=== PATIENT | male | born 1955 | race Caucasian/White ===

== ENCOUNTER → 2021-02-21 01:55 | Outpatient (CLI) | payer MEDICARE, SELFPAY ==
[2021-02-21 23:32] LABS: SARS-CoV-2 RNA PCR Negative
== END ==
PROVIDERS: PCP Internal Medicine; Visit Provider Internal Medicine Gastroenterology
DX: Z01.812 Encounter for preprocedural laboratory examination (principal); Z20.822 Contact with and (suspected) exposure to COVID-19
CPT/HCPCS: C9803; U0003; U0005

== ENCOUNTER 2021-02-24 02:14 | Day surgery (SDC) | payer MEDICARE, SELFPAY ==
[2021-02-11 09:34] VITALS: BMI 31.4
[2021-02-24 06:25] VITALS: BP 177/108; PULSE 62; RESP 18; TEMP 36.4; O2SAT 98; BMI 31.4
[2021-02-24] MEDS: LACTATED RINGERS 1,000 ML 150 ML IV CONT (06:42)
[2021-02-24 06:44] LABS: Glucose Point of Care 127 (65-105)
--- NOTE | 2021-02-24 07:00 | WPDANESEPPF ---
Anes - Initial Pre Proc Eval Procedure: Operation Date: 02/24/21 07:30 Proposed Procedures p Screening Colonoscopy - Porfirio Davila MD Date/Time: 02/24/21 07:00 Surgeon: Porfirio Davila MD Pre Op Diagnosis: hx of colon polyps Patient Data Age: 65 Gender: M Height: 1.83 m Weight: 105.2 kg Last Vital Signs Temp 36.4 C L 02/24/21 06:25 Pulse 62 02/24/21 06:25 Resp 18 02/24/21 06:25 BP 177/108 H 02/24/21 06:25 Pulse Ox 98 02/24/21 06:25 Allergies Allergy/AdvReac Type Severity Reaction Status Date / Time fluticasone Allergy Unknown Hives Verified 02/24/21 06:22 Home Medications Medication Instructions Recorded Confirmed Type aspirin 81 mg tablet,delayed 81 mg PO DAILY 08/24/19 02/11/21 History release blood sugar diagnostic #10 each 08/24/19 12/03/20 History lancets 30 gauge #25 each 08/24/19 12/03/20 History triamcinolone acetonide 55 mcg 1 spray NASAL HS 08/24/19 02/11/21 History nasal spray aerosol ezetimibe 10 mg tablet 10 mg PO DAILY #90 tablet 12/03/20 02/11/21 Rx metformin 1,000 mg tablet 1,000 mg PO BID #180 tablet 12/03/20 02/11/21 Rx valsartan 320 1 tablet PO DAILY #90 tablet 12/03/20 02/11/21 Rx mg-hydrochlorothiazide 12.5 mg tablet verapamil 240 mg tablet,extended 240 mg PO Q12H #180 tablet 12/03/20 02/11/21 Rx release sodium,potassium,mag sulfates 17.5 See Rx Instructions PO .COMPLEX 01/27/21 02/24/21 Rx gram-3.13 gram-1.6 gram oral soln #354 ml Zinc-15 15 mg PO DAILY 02/11/21 02/11/21 History ascorbic acid (vitamin C) 1,000 mg PO DAILY 02/11/21 02/11/21 History cholecalciferol (vitamin D3) 5,000 unit PO DAILY 02/11/21 02/11/21 History [Vitamin D3] coenzyme Q10 [Co Q-10] 100 mg PO DAILY 02/11/21 02/11/21 History [id number]-iya-[id number] acid-lutein [Adult 1 tablet PO DAILY 02/11/21 02/11/21 History Multivitamin (w-lutein)] omega-3 fatty acids [Fish Oil 2,000 mg PO DAILY 02/11/21 02/11/21 History Concentrate] vitamin K2 100 mcg PO DAILY 02/11/21 02/11/21 History Laboratory Tests 02/24/21 06:40 POC Capillary Glucose 127 mg/dl H mg/dl (65-105) Patient hx anesthesia problems: none Family hx anesthesia problems: none [facility] Past Medical History Medical History (Updated 02/23/21 @ 08:26 by Ronald Yoo DO) Benign essential hypertension Elevated liver function tests History of colon polyps [place] (obstructive sleep apnea) CPAP Other hyperlipidemia Type 2 diabetes mellitus without complication, without long-term current use of insulin Family History Family History Father Family history of kidney disease Patient's father is Grandparent Cerebrovascular accident Mother Family history of kidney disease Social History Social History Smoking status: Former smoker Tobacco type: cigars Alcohol intake: current Substance use: never Substance use type: does not use Living arrangements: with family Spiritual care concerns: No Anes - Eval Final PreProcedure Day of Procedure 02/24/21 07:00 Patient weight: obese Heart: regular rate and rhythm Lungs: clear to auscultation and normal air movement Airway: Mallampati scale class III Neurological: alert and oriented Last oral intake: >/= 8 hours ASA classification: III Emergent: no Anesthetic plan: proceed Anesthesia type and monitoring: general GIVS and standard monitoring Informed Consent: The patient's anesthetic plan and its attendant risks and benefits were discussed with the patient/family/POA. Questions were solicited and answers provided to the satisfaction of the patient/family/POA.
--- NOTE | 2021-02-24 07:26 | WPDGICN ---
Assessment and Plan Assessment and plan (1) History of colon polyps: Code(s): Z86.010 - Personal history of colonic polyps Status: Acute Assessment and Plan: Patient has a history of colon polyps for this reason neoplasia screening advised at this time. Colonoscopy will be performed this report follow separately. GI Consult Note Consult date/time: 02/24/21 07:26 HPI: Trino Peguero is a 65 year old male Presents for screening colonoscopy. Patient's current weight appetite bowel movements are normal. He denies abdominal pain. He has had no bleeding. His family history is noncontributory. Patient's last colonoscopy was 7 years ago. At that time he had a colon polyp. Patient presents today for screening colonoscopy. Review of Systems Review of Systems: All systems reviewed & are unremarkable except as noted in HPI and below [facility] Past Medical History Medical History (Updated 02/23/21 @ 08:26 by Ronald Yoo, ) Benign essential hypertension Elevated liver function tests History of colon polyps [place] (obstructive sleep apnea) CPAP Other hyperlipidemia Type 2 diabetes mellitus without complication, without long-term current use of insulin Family History Family History Father Family history of kidney disease Patient's father is Grandparent Cerebrovascular accident Mother Family history of kidney disease Social History Social History Smoking status: Former smoker Tobacco type: cigars Alcohol intake: current Substance use: never Substance use type: does not use Living arrangements: with family Spiritual care concerns: No Meds Home Medications and Allergies Home Medications Medication Instructions Recorded Confirmed Type aspirin 81 mg tablet,delayed 81 mg PO DAILY 08/24/19 02/11/21 History release blood sugar diagnostic #10 each 08/24/19 12/03/20 History lancets 30 gauge #25 each 08/24/19 12/03/20 History triamcinolone acetonide 55 mcg 1 spray NASAL HS 08/24/19 02/11/21 History nasal spray aerosol ezetimibe 10 mg tablet 10 mg PO DAILY #90 tablet 12/03/20 02/11/21 Rx metformin 1,000 mg tablet 1,000 mg PO BID #180 tablet 12/03/20 02/11/21 Rx valsartan 320 1 tablet PO DAILY #90 tablet 12/03/20 02/11/21 Rx mg-hydrochlorothiazide 12.5 mg tablet verapamil 240 mg tablet,extended 240 mg PO Q12H #180 tablet 12/03/20 02/11/21 Rx release sodium,potassium,mag sulfates 17.5 See Rx Instructions PO .COMPLEX 01/27/21 02/24/21 Rx gram-3.13 gram-1.6 gram oral soln #354 ml Zinc-15 15 mg PO DAILY 02/11/21 02/11/21 History ascorbic acid (vitamin C) 1,000 mg PO DAILY 02/11/21 02/11/21 History cholecalciferol (vitamin D3) 5,000 unit PO DAILY 02/11/21 02/11/21 History [Vitamin D3] coenzyme Q10 [Co Q-10] 100 mg PO DAILY 02/11/21 02/11/21 History re-adr-jjrai acid-lutein [Adult 1 tablet PO DAILY 02/11/21 02/11/21 History Multivitamin (w-lutein)] omega-3 fatty acids [Fish Oil 2,000 mg PO DAILY 02/11/21 02/11/21 History Concentrate] vitamin K2 100 mcg PO DAILY 02/11/21 02/11/21 History Allergies Allergy/AdvReac Type Severity Reaction Status Date / Time fluticasone Allergy Unknown Hives Verified 02/24/21 06:22 Vital Signs Vital Signs - 24 hr 02/24/21 06:25 Temperature 97.5 F L Pulse Rate 62 Respiratory Rate 18 Blood Pressure 177/108 H Pulse Oximetry 98 Exam Narrative: Exam Narrative: Physical exam reveals patient be alert. Vital signs stable. HEENT exam is unremarkable. Patient is anicteric. Lungs are clear to auscultation and percussion. Heart is without murmur or extra sounds. Abdominal exam bowel sounds are present soft nontender with no organomegaly. Digital external rectal exam is normal.
[2021-02-24 07:48] VITALS: BP 139/95; PULSE 66; RESP 19; O2SAT 95
--- NOTE | 2021-02-24 07:49 | WPDGICN ---
GI Consult Note Consult date/time: 02/24/21 07:49 HPI: Trino Peguero is a 65 year old male Presents for screening colonoscopy. Last exam 11 years ago was unremarkable. Patient reports his current weight appetite bowel movements normal. He denies abdominal pain. He has had no bleeding. Family history is noncontributory. Recent stool for Hemoccult was negative. His hemoglobin has remained essentially stable. Family history noncontributory. Review of Systems Review of Systems: All systems reviewed & are unremarkable except as noted in HPI and below [facility] Past Medical History Medical History (Updated 02/23/21 @ 08:26 by Ronald Yoo, ) Benign essential hypertension Elevated liver function tests History of colon polyps [place] (obstructive sleep apnea) CPAP Other hyperlipidemia Type 2 diabetes mellitus without complication, without long-term current use of insulin Family History Family History Father Family history of kidney disease Patient's father is Grandparent Cerebrovascular accident Mother Family history of kidney disease Social History Social History Smoking status: Former smoker Tobacco type: cigars Alcohol intake: current Substance use: never Substance use type: does not use Living arrangements: with family Spiritual care concerns: No Meds Home Medications and Allergies Home Medications Medication Instructions Recorded Confirmed Type aspirin 81 mg tablet,delayed 81 mg PO DAILY 08/24/19 02/11/21 History release blood sugar diagnostic #10 each 08/24/19 12/03/20 History lancets 30 gauge #25 each 08/24/19 12/03/20 History triamcinolone acetonide 55 mcg 1 spray NASAL HS 08/24/19 02/11/21 History nasal spray aerosol ezetimibe 10 mg tablet 10 mg PO DAILY #90 tablet 12/03/20 02/11/21 Rx metformin 1,000 mg tablet 1,000 mg PO BID #180 tablet 12/03/20 02/11/21 Rx valsartan 320 1 tablet PO DAILY #90 tablet 12/03/20 02/11/21 Rx mg-hydrochlorothiazide 12.5 mg tablet verapamil 240 mg tablet,extended 240 mg PO Q12H #180 tablet 12/03/20 02/11/21 Rx release sodium,potassium,mag sulfates 17.5 See Rx Instructions PO .COMPLEX 01/27/21 02/24/21 Rx gram-3.13 gram-1.6 gram oral soln #354 ml Zinc-15 15 mg PO DAILY 02/11/21 02/11/21 History ascorbic acid (vitamin C) 1,000 mg PO DAILY 02/11/21 02/11/21 History cholecalciferol (vitamin D3) 5,000 unit PO DAILY 02/11/21 02/11/21 History [Vitamin D3] coenzyme Q10 [Co Q-10] 100 mg PO DAILY 02/11/21 02/11/21 History [id number] acid-lutein [Adult 1 tablet PO DAILY 02/11/21 02/11/21 History Multivitamin (w-lutein)] omega-3 fatty acids [Fish Oil 2,000 mg PO DAILY 02/11/21 02/11/21 History Concentrate] vitamin K2 100 mcg PO DAILY 02/11/21 02/11/21 History Allergies Allergy/AdvReac Type Severity Reaction Status Date / Time fluticasone Allergy Unknown Hives Verified 02/24/21 06:22 Vital Signs Vital Signs - 24 hr 02/24/21 06:25 02/24/21 07:48 Temperature 97.5 F L Pulse Rate 62 66 Respiratory Rate 18 19 Blood Pressure 177/108 H 139/95 H Pulse Oximetry 98 95 Exam Narrative: Exam Narrative: Physical exam reveals patient to be alert. Vital signs stable. HEENT exam is unremarkable. Patient is anicteric
[2021-02-24 07:58] VITALS: BP 157/103; PULSE 50; RESP 19; O2SAT 97
[2021-02-24 08:08] VITALS: BP 171/100; PULSE 48; RESP 19; O2SAT 96
== END 2021-02-24 08:12 | disposition home or self-care (01) ==
PROVIDERS: PCP Internal Medicine; Visit Provider Internal Medicine Gastroenterology
PROC: 0DJD8ZZ Inspection of Lower Intestinal Tract, Via Natural or Artificial Opening Endoscopic (ICD-10-PCS; CPT 45378; principal; 2021-02-24 07:30)
DX: Z12.11 Encounter for screening for malignant neoplasm of colon (principal); K57.30 Diverticulosis of large intestine without perforation or abscess without bleeding; Z86.010 Personal history of colon polyps; I10 Essential (primary) hypertension; G47.33 Obstructive sleep apnea (adult) (pediatric); E78.5 Hyperlipidemia, unspecified; E11.9 Type 2 diabetes mellitus without complications; Z87.891 Personal history of nicotine dependence; Z79.82 Long term (current) use of aspirin; Z79.84 Long term (current) use of oral hypoglycemic drugs; E66.9 Obesity, unspecified; Z68.31 Body mass index [BMI] 31.0-31.9, adult
CPT/HCPCS: G0105; 82948; J2704; J7120

== ENCOUNTER → 2023-03-28 11:48 | Outpatient (CLI) | payer MEDICARE, SELFPAY ==
--- NOTE | ~2023-03-28 | XR_ITS ---
Left wrist Technique: PA, oblique, lateral, and ulnar deviation views were obtained. Clinical History: Pain Findings: No acute fracture or dislocation is seen. Osseous alignment is anatomic. There is moderate degenerative change at the first CMC joint. Soft tissues are unremarkable. 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 Reviewed, dictated and finalized at [facility]. 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
--- NOTE | ~2023-03-28 | XR_ITS ---
Right wrist Technique: PA, oblique, lateral, and ulnar deviation views were obtained. Clinical History: Pain Findings: No acute fracture or dislocation is seen. Osseous alignment is anatomic. There is minimal d egenerative change at the first CMC joint. Soft tissues are unremarkable. Impression: Minimal degenerative change of the first CMC joint. Reviewed, dictated and finalized at [facility]. Impression: Minimal degenerative change of the first CMC joint.
== END ==
PROVIDERS: PCP Plastic Surgery; Visit Provider Plastic Surgery
DX: M19.031 Primary osteoarthritis, right wrist (principal); M19.032 Primary osteoarthritis, left wrist
CPT/HCPCS: 73110

== ENCOUNTER 2023-12-08 00:16 | Day surgery (SDC) | payer MEDICARE, SELFPAY ==
[2023-11-18 09:00] VITALS: BMI 31.6
--- NOTE | 2023-12-06 08:28 | SUR.PREOP ---
Patient called regarding upcoming procedure. Voicemail regarding left appointment times.
--- NOTE | 2023-12-07 14:35 | PM.HPGS ---
History of Present Illness History of Present Illness Consent: Risks, benefits, and alternatives have been discussed and questions answered. Patient agrees to proceed with procedure. Chief complaint: melena,hx of colon polyps Narrative: Trino Peguero is a 68 year old male Who noted blood in his stool which was somewhat maroon the 1st several few days of this year. Also he has history of polyps. His last colonoscopy was about 4 years ago. Review of Systems Review of Systems: All systems reviewed & are unremarkable except as noted in HPI and below PMFSH Past Medical History Medical History Benign essential hypertension COVID-19 Elevated liver function tests History of colon polyps [place] (obstructive sleep apnea) CPAP Other hyperlipidemia Type 2 diabetes mellitus without complication, without long-term current use of insulin Family History Family History Father Family history of kidney disease Patient's father is Grandparent Cerebrovascular accident Mother Family history of kidney disease Social History Social History Smoking status: Former smoker Tobacco type: cigars Second hand tobacco smoke exposure: No Smoking end date: 10/10/02 Alcohol intake: current Drinks per week: 1 Alcohol use details: occasionally Substance use: never Substance use type: does not use Living arrangements: with family Spiritual care concerns: No Meds Home Medications and Allergies Home Medications Medication Instructions Recorded Confirmed Type aspirin 81 mg tablet,delayed 81 mg PO DAILY 08/24/19 11/18/23 History release (Adult Low Dose Aspirin) blood sugar diagnostic (MATRIXX SoftwareTouch #10 ea 08/24/19 11/18/23 History Verio test strips) lancets 30 gauge (OneTouch Delica #25 ea 08/24/19 11/18/23 History Lancets) triamcinolone acetonide 55 mcg 1 spray intranasal HS 08/24/19 11/18/23 History nasal spray aerosol (Nasacort) cholecalciferol (vitamin D3) 125 5,000 unit PO DAILY 02/11/21 11/18/23 History mcg (5,000 unit) tablet (Vitamin D3) multivit with min-folic 1 tablet PO DAILY 02/11/21 11/18/23 History acid-lutein 200 mcg-137.5 mcg chewable tablet (Adult Multivitamin (w-lutein)) omega-3 fatty acids 1,000 mg 2,000 mg PO DAILY 02/11/21 11/18/23 History capsule (Fish Oil Concentrate) verapamil 240 mg tablet,extended 240 mg PO BID #180 tabs 08/04/23 11/18/23 Rx release ezetimibe 10 mg tablet 10 mg PO DAILY #90 tabs 10/27/23 11/18/23 Rx metformin 1,000 mg tablet See Rx Instructions .Route 11/03/23 11/18/23 Rx .COMPLEX #180 tabs valsartan 320 See Rx Instructions .Route 11/03/23 11/18/23 Rx mg-hydrochlorothiazide 25 mg tablet .COMPLEX #90 tabs Allergies Allergy/AdvReac Type Severity Reaction Status Date / Time fluticasone Allergy Unknown Hives Verified 12/08/23 11:30 Exam Const: General: alert Orientation/consciousness: patient oriented x3 Resp: Auscultation: clear to auscultation bilaterally Cardio: Rhythm: regular rhythm GI: GI Palp: Yes Soft to palpation and No Tenderness to palpation present (GI) Neuro: General: patient oriented x3 Assessment and Plan Assessment and plan (1) History of colon polyps: Code(s): Z86.010 - Personal history of colonic polyps Status: Acute Assessment and Plan: Colonoscopy with possible biopsy or polypectomy or cautery or injection of substances.
[2023-12-08 11:31] VITALS: BP 146/82; PULSE 65; RESP 16; TEMP 36.2; O2SAT 97
[2023-12-08 11:34] LABS: Glucose Point of Care 130 mg/dl (65-105)
[2023-12-08] MEDS: LACTATED RINGERS 1,000 ML 150 ML IV CONT (11:40)
--- NOTE | 2023-12-08 11:59 | WPDANESEPPF ---
Anes - Initial Pre Proc Eval Procedure: Operation Date: 12/08/23 12:30 Proposed Procedures p Colonoscopy - Bill Milton MD Date/Time: 12/08/23 11:59 Surgeon: Bill Milton MD Pre Op Diagnosis: melena,hx of colon polyps Patient Data Age: 68 Gender: M Height: 1.83 m Weight: 101.5 kg Last Vital Signs Temp 36.2 C L 12/08/23 11:31 Pulse 65 12/08/23 11:31 Resp 16 12/08/23 11:31 BP 146/82 H 12/08/23 11:31 Pulse Ox 97 12/08/23 11:31 O2 Del Method Room Air 12/08/23 11:31 Allergies Allergy/AdvReac Type Severity Reaction Status Date / Time fluticasone Allergy Unknown Hives Verified 12/08/23 11:30 Home Medications Medication Instructions Recorded Confirmed Type aspirin 81 mg tablet,delayed 81 mg PO DAILY 08/24/19 11/18/23 History release (Adult Low Dose Aspirin) blood sugar diagnostic (OneTouch #10 ea 08/24/19 11/18/23 History Verio test strips) lancets 30 gauge (OneTouch Delica #25 ea 08/24/19 11/18/23 History Lancets) triamcinolone acetonide 55 mcg 1 spray intranasal HS 08/24/19 11/18/23 History nasal spray aerosol (Nasacort) cholecalciferol (vitamin D3) 125 5,000 unit PO DAILY 02/11/21 11/18/23 History mcg (5,000 unit) tablet (Vitamin D3) multivit with min-folic 1 tablet PO DAILY 02/11/21 11/18/23 History acid-lutein 200 mcg-137.5 mcg chewable tablet (Adult Multivitamin (w-lutein)) omega-3 fatty acids 1,000 mg 2,000 mg PO DAILY 02/11/21 11/18/23 History capsule (Fish Oil Concentrate) verapamil 240 mg tablet,extended 240 mg PO BID #180 tabs 08/04/23 11/18/23 Rx release ezetimibe 10 mg tablet 10 mg PO DAILY #90 tabs 10/27/23 11/18/23 Rx metformin 1,000 mg tablet See Rx Instructions .Route 11/03/23 11/18/23 Rx .COMPLEX #180 tabs valsartan 320 See Rx Instructions .Route 11/03/23 11/18/23 Rx mg-hydrochlorothiazide 25 mg tablet .COMPLEX #90 tabs Laboratory Tests 12/08/23 11:29 POC Capillary Glucose 130 H mg/dl (65-105) Patient hx anesthesia problems: none Family hx anesthesia problems: none Results Review: All pre-operative results and documents have been reviewed as part of the pre-operative evaluation. [facility] Past Medical History Medical History Benign essential hypertension COVID-19 Elevated liver function tests History of colon polyps [place] (obstructive sleep apnea) CPAP Other hyperlipidemia Type 2 diabetes mellitus without complication, without long-term current use of insulin Family History Family History Father Family history of kidney disease Patient's father is Grandparent Cerebrovascular accident Mother Family history of kidney disease Social History Social History Smoking status: Former smoker Tobacco type: cigars Second hand tobacco smoke exposure: No Smoking end date: 10/10/02 Alcohol intake: current Drinks per week: 1 Alcohol use details: occasionally Substance use: never Substance use type: does not use Living arrangements: with family Spiritual care concerns: No Anes - Eval Final PreProcedure Day of Procedure 12/08/23 11:59 Patient weight: obese Heart: regular rate and rhythm Lungs: clear to auscultation Airway: Mallampati scale class III Neurological: alert and oriented Last oral intake: >/= 8 hours ASA classification: III Emergent: no Anesthetic plan: proceed Anesthesia type and monitoring: general GIVS and standard monitoring Results Review: All pre-operative results and documents have been reviewed as part of the pre-operative evaluation. Informed Consent: The patient's anesthetic plan and its attendant risks and benefits were discussed with the patient/family/POA. Questions were solicited and answers provided to the satisfaction of the patient/family/POA.
[2023-12-08] MEDS: SIMETHICONE ORAL SUSPENSION 20 MG/0.3 ML 30 ML BOTTLE 0.6 ML IRRIGATION (12:50)
[2023-12-08 12:58] VITALS: BP 101/59; PULSE 48; RESP 18; O2SAT 95
[2023-12-08 13:08] VITALS: BP 115/41; PULSE 48; RESP 25; O2SAT 97
[2023-12-08 13:18] VITALS: BP 126/64; PULSE 50; RESP 17; O2SAT 98
== END 2023-12-08 13:25 | disposition home or self-care (01) ==
PROVIDERS: PCP Family Medicine; Visit Provider Internal Medicine Gastroenterology
PROC: 0DJD8ZZ Inspection of Lower Intestinal Tract, Via Natural or Artificial Opening Endoscopic (ICD-10-PCS; CPT 45378; principal; 2023-12-08 12:30)
DX: K57.30 Diverticulosis of large intestine without perforation or abscess without bleeding (principal); K64.8 Other hemorrhoids; Z86.010 Personal history of colon polyps; I10 Essential (primary) hypertension; G47.33 Obstructive sleep apnea (adult) (pediatric); E11.9 Type 2 diabetes mellitus without complications; E78.2 Mixed hyperlipidemia; Z79.82 Long term (current) use of aspirin; Z79.84 Long term (current) use of oral hypoglycemic drugs; Z87.891 Personal history of nicotine dependence; E66.9 Obesity, unspecified; Z68.30 Body mass index [BMI] 30.0-30.9, adult
CPT/HCPCS: 45378; 82948; J2704; J7120

== ENCOUNTER 2025-09-23 07:50 | Outpatient (CLI) | payer MEDICARE, SELFPAY | END 2025-09-23 07:51 | disposition home or self-care (01) | LOC: ANHAUDIO 07:50 | PROVIDERS: PCP Nurse Practitioner; Visit Provider Nurse Practitioner | DX: H91.93 Unspecified hearing loss, bilateral (principal) | CPT/HCPCS: 92557; 92567 ==